=== PATIENT | male | born 1945 | race Caucasian/White ===

== ENCOUNTER → 2020-09-20 10:25 | Outpatient (CLI) | payer MEDICARE, BC, SELFPAY ==
[2020-09-22 08:27] LABS: COVID19 Sendout Not Detected (Not Detect)
== END ==
PROVIDERS: Family Provider Family Medicine; PCP Family Medicine; Visit Provider Physician Assistant
DX: Z11.59 Encounter for screening for other viral diseases (principal)
CPT/HCPCS: 87635

== ENCOUNTER 2020-09-23 05:59 | Day surgery (SDC) | payer MEDICARE, BC, SELFPAY ==
[2020-09-16 12:59] VITALS: BMI 32.1
[2020-09-23] VITALS (17 sets, daily range): BP systolic 108–169; BP diastolic 4–93; PULSE 62–93; RESP 12–95; TEMP 35.7–36.8; O2SAT 12–97; BMI 31.9
--- NOTE | 2020-09-23 06:00 | DI.RAD.S_ITS ---
PROCEDURE: XR KNEE RT 1TO2V INDICATIONS: TKA TECHNIQUE: 3 view(s) of the knee acquired. COMPARISON: [facility], CR, XR BONE LENGTH SCANOGRAM, 08/18/2020, 14:28. [facility], MR, MR KNEE RIGHT WITHOUT CONTRAST, 08/11/2020, 15:30. FINDINGS: Bones: Patient is status post knee joint arthroplasty. Hardware components are in expected positions. Visualized bony structures are intact. Soft tissues: Overlying postoperative changes are noted. IMPRESSION: Right knee prosthesis in anatomic alignment. Dictated by: Naila Hawkins M.D. on 09/23/2020 at 16:24 Approved by: Naila Hawkins M.D. on 09/23/2020 at 16:25
[2020-09-23] MEDS: ACETAMINOPHEN 325 MG TABLET 975 MG PO (06:43)
[2020-09-23] MEDS: PREGABALIN 75 MG CAPSULE PO (06:43)
[2020-09-23] MEDS: VANCOMYCIN 1,000 MG/200 ML PIGGYBACK 200 MG IV (07:00)
[2020-09-23] MEDS: LACTATED RINGERS 1,000 ML 42 ML IV ×2 (07:00→10:18)
--- NOTE | 2020-09-23 07:43 | P.OP_ITS ---
Operative Date/Time/Diagnoses Date of procedure: 09/23/20 Time of procedure: 07:59 Pre-op diagnosis: right knee OA Post-op diagnosis: same Procedure & Clinicians Procedure: right total knee arthroplasy Same procedure as scheduled: Yes Indications: The patient has had progressively worsening right knee pain with radiographic changes consistent with arthritis. Non-operative management has failed and the patient has requested total knee replacement. The risks, benefits and alternatives to surgery were discussed with the patient prior to proceeding. Risks discussed included, but were not limited to, failure to relieve pain, stiffness, infection, nerve damage, deep venous thrombosis, pulmonary embolism, stroke, coma, heart attack, permanent paralysis and , as well as the potential need for eventual revision of the prosthetic. Surgeon: Rabia Cavanaugh Creative Developer: Georgette White Anesthesia Type: General and Spinal Operative Notes Findings: Severe right knee osteoarthritis, good stability Closure Type: primary Specimen(s): none sent Prosthetic devices, grafts, tissues, transplants, or devices: [facility] 2 size 9 femur, size 8 tibia, +9 poly, 41 oval patella Applied: drain(s) Estimated Blood Loss (mL): 250 Blood products transfused: none Tourniquet time (min): 100 Procedure in detail: The patient was seen in the pre-operative area, where the patient identified the right knee as the operative site and this was marked with my initials. The patient received pre-operative antibiotics, and was taken to the operating room and placed on the operative table in the supine position. After satisfactory anesthesia, a time signal wirer out was performed. The right leg was encircled with a tourniquet about the proximal thigh, and the leg was prepared from the toes to the tourniquet with ChloroPrep in the usual fashion and draped through sterile drapes. The leg was elevated and exsanguinated with Eschmark bandage and the tourniquet inflated to [250] mmHg pressure. The knee was approached through an approximately 18 cm incision centered over the patella and carried into the knee through a medial parapatellar arthrotomy. A portion of the medial and lateral meniscus was resected. Soft tissue was carefully mobilized around the patella the patella was measured with a caliper. Bone was resected from the patella and the patellar height was reconstituted with up an appropriate sized patellar component. A cover was then placed on the patella. A small amount of additional medial and lateral meniscus was resected. The visionare guide fit well to the distal femur. It looked like an appropriate distal femoral cut and the cut was made without difficulty. The rotation was assessed and the appropriate size femoral guide was placed on the distal femur and finishing cuts were made. There was no evidence of notching. The anterior, posterior and chamfer cuts were then made. The posterior osteophytes and soft tissues were then removed. The posterior capsule was injected with part of a mixture of 60 ml 0.25% Marcaine mixed with 20 ml Exparel for post operative pain control. The remainder of this mixture was injected into the capsule and subcutaneous tissues during cement curing. The tibia was prepared and the visionaire guide fit well to the distal tibia. The rotation was assessed. The patient was placed in extension residual medial and lateral meniscus as well as any residual bone was carefully resected. 2 mm additional tibia was resected. Hemostasis was achieved especially posteriorly. Additional local was injected into the posterior capsule. The extension gap was assessed and additional releases for gap balancing were performed as necessary. It was checked with the gap shrimp boat captain. The femoral component was trial was placed and the notch was finished. Trial tibial and femoral components were then placed and the knee placed through a range of motion. Range of motion was [0-130], with good stability throughout the range. The trials were then removed, and the tibia was finished. The bone was prepared with pulsatile lavage, and dried with a sponge. Cement was applied and the final prosthetics placed. Excess cement was removed during and after cement curing. A brief Betadine soak was performed. After confirming there was no extruded cement posteriorly, the final tibial insert was placed. The knee was copiously irrigated and the tourniquet deflated. Hemostasis was obtained with the Bovie cautery. A drain was placed and brought out superolaterally. The capsule was closed with interrupted Vicryl suture. The subcutaneous layer was closed with barbed sutures, and the skin with a running 3-0 V-Lock suture and Surgical glue. An Aquacel Ag dressing was applied and the patient was taken to recovery having tolerated the procedure well. Complications: none Post-operative Condition: stable Disposition: Acute Care Plan for aftercare: The patient will be maintained on a standard total knee replacement protocol with weight bearing as tolerated. The patient will receive aspirin and sequential compression devices for DVT prophylaxis. The patient will be discharged home when safe for the home environment.
--- NOTE | 2020-09-23 07:43 | PM.PREOP ---
Pre-operative Note COVID-19 COVID-19 status: Negative Interval Note History & Physical reviewed/Exam performed by Physician: Yes Changes to H&P: No
[2020-09-23] MEDS: CEFAZOLIN 2 GM/100 ML FROZ.PIGGY IV ×2 (08:00→16:44)
--- NOTE | 2020-09-23 08:22 | SUR.OPER ---
Supine on padded OR bed. Pillow under head, arms secured on padded armboards <90 degree abduction. Safety belt across torso. Non-operative leg secured with tape over blanket over lower leg. Operative leg secured in DeMayo/Cesar positioner. Foam padded brace at thigh of operative leg.
[2020-09-23] MEDS: BUPIVACAINE LIPOSOME 266 MG/20 ML VIAL INJ (08:35)
[2020-09-23] MEDS: BUPIVACAINE 0.25% W/ EPI (PF) 10 ML VIAL 20 ML INJ (08:35)
[2020-09-23] MEDS: SODIUM CHLORIDE IRRIG SOLUTION 250 ML, POVIDONE-IODINE SPONGE STICKS 1 APPLIC IRR (08:38)
--- NOTE | 2020-09-23 11:08 | SUR.PHASEI ---
1100 - Pt has room assignment of room 208. Previous pt just left and room needs to be cleaned. , Mary Jo, updated on pt status and room delay.
[2020-09-23] MEDS: LACTATED RINGERS 1,000 ML 100 ML IV ×2 (11:30→23:06)
[2020-09-23] MEDS: ACETAMINOPHEN 325 MG TABLET 650 MG PO (13:38)
--- NOTE | 2020-09-23 13:55 | PT.IIE ---
Current Diagnoses Unilateral primary osteoarthritis, right knee (09/23/20) Surgery Performed Operation Date: 09/23/20 07:45 Actual Procedures p Total Knee Arthroplasty(Right) - Rabia Cavanaugh MD Surgical History (Last Updated 09/16/20 @ 13:23 by Audra Arita, RN) History of arthroplasty of left hip (Acute) History of arthroplasty of right hip (Acute) Hx of colectomy (Acute) Hx of tonsillectomy (Acute) Medical History (Last Updated 09/16/20 @ 13:23 by Audra Arita RN) Arthritis (Acute) Colostomy in place (Acute) HLD (hyperlipidemia) (Acute) HTN (hypertension) (Acute) Osteoarthritis (Acute) Pulmonary embolism (Acute) Physical Therapy Inpatient Evaluation/Re-Eval M1 PT/OT-IP Prior Functional Status Start: 09/23/20 16:28 Freq: NEEDED Status: Active Protocol: Document 09/23/20 13:55 AB (Rec: 09/23/20 16:38 AB [email or web address]) Medical Review Prior Functional Status Medical History Reviewed Yes Communication able to make needs known Mobility and Gait pt stated that he is independent with all mobilities and ambulation without AD Social History Household Members spouse Living Arrangements House Number of Floors (Floors) One Floor Number of Stairs To Enter/Railing? 1 step to enter Home Environment High Toilet,Walk in Shower Home Equipment Front Wheel Walker Employment Status Retired M2 PT-IP Current Condition Start: 09/23/20 16:28 Freq: NEEDED Status: Active Protocol: Document 09/23/20 13:55 AB (Rec: 09/23/20 16:38 AB [email or web address]) Physical Therapy Current Condition Current Condition Evaluation Date 09/23/20 Treatment Diagnosis s/p R TKA; difficulty in walking Onset Date 09/23/20 Weight Bearing Status Weight Bearing Status Weight Bear as Tolerated Allowed Weight Bearing Amount (enter % WBAT RLE or #) (%) M3 PT-IP Subjective Start: 09/23/20 16:28 Freq: NEEDED Status: Active Protocol: Document 09/23/20 13:55 AB (Rec: 09/23/20 16:38 AB [email or web address]) Subjective Physical Therapy Visit Type Type Initial Evaluation Visit Start Time 13:55 Visit Stop Time 15:07 Total Visit Minutes 33 Notes pt seen for split visits: 1355 to 1406 and 1445 to 1507 Number of HOOP MAKER Visits 0 Physical Therapy Visit Comments Patient Comments pt is agreeable to do PT Therapy Pain Assessment Pain When Pain Assessed At Rest Location Right Knee Intensity 6 Scale Used Numeric (0 - 10) Pain Management Techniques Apply Cold,Distraction, Modification of Treatment,Re- positioning,Timing of Activity with Medications M4 PT-IP Mobility and Gait Start: 09/23/20 16:28 Freq: NEEDED Status: Active Protocol: Document 09/23/20 13:55 AB (Rec: 09/23/20 16:38 [email or web address]) PT-Bed Mobility Assessment Supine to Sit Supine to Sit Standby Assistance Sit to Supine Sit to Supine Standby Assistance Scooting Scooting to Edge of Bed Standby Assistance PT-Transfer Assessment Sit to and From Stand Sit to and from Stand Minimal Assistance,1 Person Assistance,Use of Upper Extremities Equipment Transfer Assistive Device Gait Belt,Front Wheeled Walker Orthotic/Prosthetic Devices or Brace: No Comments Mobility Comments completed supine to sit SBA. pt was able to sit on EOB SBA. completed sit to stand min A and cues and ambulated 5 ft forward using FWW min A and c/ o dizziness/nausea and instructed to walk back to bed and completed another 5 ft back to bed. BP 136/84. completed sit to supine SBA. positioned in bed. call light and table placed within reach . nurse informed regarding c/ o nausea. Gait Assessment Gait Gait Assistance Required: Minimum Assistance Distance (Feet) 10 Able to Maintain Weight Bearing Status Yes During Gait Assistive Devices Assistive Device Gait Belt,Front Wheeled Walker Orthotic/Prosthetic Devices or Brace: No Gait Deviations General Gait Pattern Antalgic,Decreased Stride Length,Decreased Feet Clearance,Step-to Gait Factors Limiting Gait Function Factors Limiting Gait Function Decreased Activity Tolerance, Decreased Sensation,Decreased Strength,Difficulty Following Directions,Limited Range of Motion,Pain,Poor Balance,Poor Safety Awareness PT-Balance Assessment Sitting Balance and Reactions Static Sitting Balance Ability Good Dynamic Sitting Balance Ability Good Standing Balance and Reactions Static Standing Balance Ability Fair Dynamic Standing Balance Ability Fair Device Used FWW M5 PT-IP Objective Assessments Start: 09/23/20 16:28 Freq: NEEDED Status: Active Protocol: Document 09/23/20 13:55 AB (Rec: 09/23/20 16:38 AB [email or web address]) Orientation Orientation/Cognition Level of Alertness Alert Orientation Name,Place,Situation Language Function Ability Hard of Hearing Safety Awareness Decreased Safety Awareness Gross Range of Motion Lower Extremity ROM Assessment Right Impaired Impairments R knee flexion ~ 70 degrees R knee extension: 15 deg less to neutral Strength Lower Extremity Strength Assessment Right Impaired Hip 4-/5 Knee 3+/5 Coordination Assessment Gross Coordination Gross Coordination WNL Sensation Assessment Sensation Gross Sensation WNL Muscle Tone Muscle Tone WNL Yes M6 PT-IP Treatment Start: 09/23/20 16:28 Freq: NEEDED Status: Active Protocol: Document 09/23/20 13:55 AB (Rec: 09/23/20 16:38 AB [email or web address]) Physical Therapy Treatment Exercises Exercises Heel Slides Education Education Provided Precautions,Weight Bearing Status,Post-Op Packet,Safety M7 PT-IP Assessment and Plan Start: 09/23/20 16:28 Freq: NEEDED Status: Active Protocol: Document 09/23/20 13:55 AB (Rec: 09/23/20 16:38 AB [email or web address]) PT Summary Assessment and Plan Potential Rehabilitation Potential Good Status of Condition at Evaluation Evolving Summary Impairments Pain,ROM,Strength,Balance, Coordination,Sensation,Bed Mobility,Transfers,Gait, Activity Tolerance Assessment Summary pt s/p R TKA and just had surgery this morning. pt requiring min A with mobility but was not able to tolerate much activity due to c/o dizziness/nausea. will continue to assess progress but pt will likely progress during hospital stay and pt will have his spouse to assist him at home. will conduct caregiver training when appropriate. Goals Bed Mobility Goal Independent Transfer Goal Independent,Front Wheeled Walker Gait Goal Independent,Front Wheel Walker Gait Distance 150 Other Goals up/down 1 step using FWW SBA Days to Meet Goals 3 Frequency of Treatment Frequency Of Treatment Twice a Day Treatment Plan Physical Therapy Treatment Plan Bed Mobility Training,Transfer Training,Gait Training, Therapeutic Exercise,Balance Retraining,Post Op Education, Discharge Planning,Hot or Cold Pack,Neuromuscular Re-ed, Coordination Retraining,Manual Therapy Recommendations To Nursing Amount of Assist Needed 1 Person Assist Discharge Recommendations PT Discharge Recommendations Home with Assistance, Outpatient PT Transportation Needs at Discharge Private Vehicle
[2020-09-23] MEDS: HYDROCODONE/ACET 5/325 TABLET 2 TAB PO ×2 (14:12→19:12)
--- NOTE | 2020-09-23 14:26 | PC.NURSE ---
Patient to floor around 1200. He had a r.total knee. He has good sensation down to his foot, states that he can feel touching but the bottom of the foot feels numb. Patient will be using the urinal to void. He was given tylenol and vicodin for discomfort. He also has an illeostomy bag from a previous surgery years back. Aquacel dressing to r.knee is cdi with libia wrap on top. Patient has a hemovac that is putting out a fair amount of bloody drainage.. This will be emptied by the SYSTEMS DEVELOPMENT CONSULTANT soon. CMS wnl and ppx2. in room and helpful with care. Patient tolerating regular food and kashif lexis.
[2020-09-23] MEDS: WARFARIN 5 MG TABLET 2.5 MG PO (19:14)
[2020-09-23] MEDS: ATORVASTATIN 20 MG TABLET 10 MG PO (21:17)
[2020-09-23] MEDS: ASPIRIN EC 81 MG TABLET PO (21:17)
[2020-09-23] MEDS: DOCUSATE 100 MG CAPSULE PO (21:18)
[2020-09-23] MEDS: lisinopriL 10 MG TABLET PO (21:18)
[2020-09-24] MEDS: CEFAZOLIN 2 GM/100 ML FROZ.PIGGY IV (00:10)
[2020-09-24] MEDS: HYDROCODONE/ACET 5/325 TABLET 2 TAB PO ×2 (04:01→08:57)
[2020-09-24 04:04] VITALS: BP 138/65; PULSE 77; RESP 16; TEMP 35.9; O2SAT 97
[2020-09-24 05:55] LABS: Hematocrit 39.1 % (41-53); Hemoglobin 13.2 g/dL (13.5-17.5)
[2020-09-24 07:31] VITALS: PULSE 73; O2SAT 97
--- NOTE | 2020-09-24 07:31 | P.PN_ITS ---
Subjective Subjective Date Patient Seen: 09/24/20 Time Patient Seen: 07:31 Interval history: Patient is POD#1 s/p right TKA with Dr. Cavanaugh. Pain was controlled overnight. Mostly complaining of muscle discomfort in the quad. Some difficulty voiding overnight, given one dose of Flomax last night and he is now voiding appropriately. Had a significant amount of drainage yesterday afternoon, drain was clamped again overnight and drainage has since slowed. He has jeremy perea in the room and worked with PT yesterday. No complaints. Exam Vital Signs (past 8 hours): - 09/23/20 23:55 09/24/20 04:04 Temperature 97.5 F L 96.7 F L Pulse Rate 77 77 Respiratory Rate 16 16 Blood Pressure 127/75 138/65 Pulse Oximetry 94 97 Oxygen Delivery Method Room Air Oxygen Flow Rate 0 Narrative Exam Narrative: 75 year old male resting in bed, alert and oriented in no acute distress. JAVON in place. Aquacel is CDI. Patient able to perform a straight leg raise. Calves are soft, nontender. Objective Labs Result Diagrams: 09/24/20 05:41 Labs: Laboratory Results - last 24 hr 09/24/20 05:41 Hgb 13.2 L Hct 39.1 L Assessment & Plan Assessment & Plan narrative: Patient doing well postoperatively. Urinary retention secondary to spinal anesthesia has resolved. 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 He was started on Lovenox preoperatively and will bridge with Lovenox postop. He was restarted on his Warfarin. These will serve as DVT prophylaxis. These prescriptions were provided by his PCP prior to surgery. He has history of rash with Oxycodone so Vicodin prescription provided as well as Vistaril for muscle spasm. He will mobilize today with PT. His is available as worm grower at home. Discharge to home later today pending clearance by PT.
[2020-09-24 08:25] VITALS: BP 138/71; PULSE 83; RESP 16; TEMP 36.7; O2SAT 95
[2020-09-24] MEDS: ACETAMINOPHEN 325 MG TABLET 650 MG PO (08:45)
[2020-09-24 08:48] VITALS: BP 128/71; PULSE 80
[2020-09-24] MEDS: lisinopriL 10 MG TABLET PO (08:48)
--- NOTE | 2020-09-24 11:02 | PT.IPTN ---
Current Diagnoses Unilateral primary osteoarthritis, right knee (09/23/20) Surgery Performed Operation Date: 09/23/20 07:45 Actual Procedures p Total Knee Arthroplasty(Right) - Rabia Cavanaugh MD Physical Therapy Treatment Note M2 PT-IP Current Condition Start: 09/23/20 16:28 Freq: NEEDED Status: Active Protocol: Document 09/23/20 13:55 AB (Rec: 09/23/20 16:38 AB [email or web address]) Physical Therapy Current Condition Current Condition Evaluation Date 09/23/20 Treatment Diagnosis s/p R TKA; difficulty in walking Onset Date 09/23/20 Weight Bearing Status Weight Bearing Status Weight Bear as Tolerated Allowed Weight Bearing Amount (enter % WBAT RLE or #) (%) M3 PT-IP Subjective Start: 09/23/20 16:28 Freq: NEEDED Status: Active Protocol: Document 09/24/20 10:53 HH (Rec: 09/24/20 11:01 HH [email or web address]) Subjective Physical Therapy Visit Type Type Treatment Note Visit Start Time 10:30 Visit Stop Time 10:53 Total Visit Minutes 23 Number of SOCIETY REPORTER Visits 0 Physical Therapy Visit Comments Patient Comments my knee is more sore today. Therapy Pain Assessment Pain When Pain Assessed During Mobility Pain Present Pain Present Pain Reported Location Right Knee Intensity 5 Scale Used Numeric (0 - 10) Pain Management Techniques Apply Cold,Distraction, Modification of Treatment,Re- positioning,Timing of Activity with Medications M4 PT-IP Mobility and Gait Start: 09/23/20 16:28 Freq: NEEDED Status: Active Protocol: Document 09/24/20 10:53 HH (Rec: 09/24/20 11:01 [email or web address]) PT-Bed Mobility Assessment Supine to Sit Supine to Sit Standby Assistance Sit to Supine Sit to Supine Standby Assistance Scooting Scooting to Edge of Bed Standby Assistance PT-Transfer Assessment Sit to and From Stand Sit to and from Stand Standby Assistance,Use of Upper Extremities Equipment Transfer Assistive Device Gait Belt,Front Wheeled Walker Orthotic/Prosthetic Devices or Brace: No Transfers Transfer Destination Bed,Chair Transfer Technique Stand Step Pivot Transfer Ability Level of Assist Contact Guard Assistance,Use of Upper Extremities Comments Mobility Comments Pt was in bed upon PT arrival. at bedside. Pt completed supine to sit slowly with CGA and able to pivot his RLE to R EOB. He then stood up with mostly pushed off from FWW and LLE. Practice standing TKE and proceeded to amb. He completed amb with FWW CGA for about 120 feet in total with mild antalgic gait. He did not c/o increase discomfort. He also completed PF step with FWW safely with proper technique. He returned to his room after and did CGA for him. Pt was steady and no LOB noted. He sat down to chair with staggered stance with use of UEs to descend. Call light placed within reach . Gait Assessment Gait Gait Assistance Required: Contact Guard Assist Distance (Feet) 120 Able to Maintain Weight Bearing Status Yes During Gait Assistive Devices Assistive Device Gait Belt,Front Wheeled Walker Orthotic/Prosthetic Devices or Brace: No Gait Deviations General Gait Pattern Antalgic,Decreased Stride Length,Decreased Feet Clearance,Step-to Gait Factors Limiting Gait Function Factors Limiting Gait Function Decreased Activity Tolerance, Decreased Sensation,Decreased Strength,Difficulty Following Directions,Limited Range of Motion,Pain,Poor Balance,Poor Safety Awareness Comments Gait Comments see mobility comments. Stair Climbing Assessment Evaluation Level of Assist On Stairs Contact Guard Assistance Devices Stair Climbing Assistive Devices Front Wheel Walker Technique/Endurance Stair Climbing Direction Ascend and Descend Stair Climbing Technique Step to Step Number of Steps Climbed 1 Stair Climbing Set # Repetitions (reps) 2 Comments Stair Climbing Comments PF step used PT-Balance Assessment Sitting Balance and Reactions Static Sitting Balance Ability Good Dynamic Sitting Balance Ability Good Standing Balance and Reactions Static Standing Balance Ability Good Dynamic Standing Balance Ability Good Device Used FWW M5 PT-IP Objective Assessments Start: 09/23/20 16:28 Freq: NEEDED Status: Active Protocol: Document 09/23/20 13:55 AB (Rec: 09/23/20 16:38 AB [email or web address]) Orientation Orientation/Cognition Level of Alertness Alert Orientation Name,Place,Situation Language Function Ability Hard of Hearing Safety Awareness Decreased Safety Awareness Gross Range of Motion Lower Extremity ROM Assessment Right Impaired Impairments R knee flexion ~ 70 degrees R knee extension: 15 deg less to neutral Strength Lower Extremity Strength Assessment Right Impaired Hip 4-/5 Knee 3+/5 Coordination Assessment Gross Coordination Gross Coordination WNL Sensation Assessment Sensation Gross Sensation WNL Muscle Tone Muscle Tone WNL Yes M6 PT-IP Treatment Start: 09/23/20 16:28 Freq: NEEDED Status: Active Protocol: Document 09/23/20 13:55 AB (Rec: 09/23/20 16:38 AB [email or web address]) Physical Therapy Treatment Exercises Exercises Heel Slides Education Education Provided Precautions,Weight Bearing Status,Post-Op Packet,Safety M7 PT-IP Assessment and Plan Start: 09/23/20 16:28 Freq: NEEDED Status: Active Protocol: Document 09/24/20 10:53 (Rec: 09/24/20 11:01 [email or web address]) PT Summary Assessment and Plan Potential Rehabilitation Potential Excellent Status of Condition at Evaluation Stable Summary Impairments Pain,ROM,Strength,Balance, Coordination,Sensation,Bed Mobility,Transfers,Gait, Activity Tolerance Progress Towards Goals Safe For Discharge Assessment Summary Pt show significant improvements for amb distance and completed PF step climbing with CGA and FWW. He demonstrated good understanding for post op safty precautions as well. He is safe to go home with assistance and outpatient PT. Frequency of Treatment Frequency Of Treatment Discharge Recommendations To Nursing Amount of Assist Needed 1 Person Assist Discharge Recommendations PT Discharge Recommendations Home with Assistance, Outpatient PT Transportation Needs at Discharge Private Vehicle
--- NOTE | 2020-09-24 12:05 | PC.NURSE ---
Day shift note: Patient awake, alert, and cooperative. Cleared by PT. Removed Hemovac as ordered. CMS intact to RLE. Urinating without difficulty. Discharge instructions given to patient and , discussed importance of F/U with Ortho as scheduled, s/sx of infections, new medications and side effects, and mobility precautions. Both verbalized understanding of instructions. Rx given to . Home via private vehicle. Dr. Cavanaugh updated.
--- NOTE | 2020-09-24 14:35 | CM.IDA ---
Initial DCP Assessment Note Pt is a 75 yo male, resident of [place], now POD#1 from Rt knee surgery w/ Dr Cavanaugh PCP: Teofilo Garcia Payer: [employer]/TERRI Saenz Reviewed chart, pt discussed in multidisciplinary rounds this morning. Therapy has cleared pt for return home w/family to assist and pt has planned for home, DC order from Ortho has already been initiated this morning. Met w/patient to introduce role, patient eager to return home and denies needs from this METAL BENCH PATTERNMAKER. Home today as patient planned. Britni Merlos, METAL BENCH PATTERNMAKER
== END 2020-09-24 12:13 | disposition home or self-care (01) ==
LOC: OR 06:12 → AC 06:22
PROVIDERS: Family Provider Family Medicine; PCP Family Medicine; Referring Provider Orthopaedic Surgery; Visit Provider Orthopaedic Surgery
PROC: 0SRC0JZ Replacement of Right Knee Joint with Synthetic Substitute, Open Approach (ICD-10-PCS; CPT 27447; principal; 2020-09-23 07:45)
DX: M17.11 Unilateral primary osteoarthritis, right knee (principal); E78.5 Hyperlipidemia, unspecified; Z86.711 Personal history of pulmonary embolism; Z79.01 Long term (current) use of anticoagulants
CPT/HCPCS: 27447; 36415; 73560; 85014; 85018; 97116; 97162; 97530; C1776; C9290; J0690; J2250; J2704; J3010